=== PATIENT | male | born 1950 | race Caucasian/White ===

== ENCOUNTER 2019-05-08 10:21 | Emergency (ER) | payer MEDICARE ==
[~2019-05-08] VITALS: Ht 188 cm; Wt 98.4 kg
--- NOTE | 2019-05-08 10:35 | NUR ---
pt at [facility]
[2019-05-08] MEDS ORDERED: LIDOcaine 1% W/epiNEPHrine 1:100,000 20ml vial SQ ONE (10:55)
[2019-05-08] MEDS ORDERED: tetanus & diphtheria toxoid (Td) vaccine 0.5ml IMVAC ONE (10:55)
[2019-05-08] MEDS ORDERED: TETanus/Pertussis (Acell)/Diphther VAC/PF (Tdap-Adult) 0.5ml syringe IMVAC ONE (11:05)
[2019-05-08 11:31] VITALS: BP 110/73
== END 2019-05-08 12:28 | disposition home or self-care (01) ==
LOC: ER 10:21
DX: S01.01XA Laceration without foreign body of scalp, initial encounter (principal); I48.91 Unspecified atrial fibrillation; Z88.0 Allergy status to penicillin; W18.39XA Other fall on same level, initial encounter; Y93.01 Activity, walking, marching and hiking; Y92.89 Other specified places as the place of occurrence of the external cause; Y99.8 Other external cause status
CPT/HCPCS: 12002; 70450; 90471; 90715; 99284